=== PATIENT | female | born 1965 | race African-American/Black ===

== ENCOUNTER 2017-03-09 05:49 | Emergency (ER) | payer OTHER ==
[~2017-03-09] VITALS: Ht 160 cm; Wt 81.0 kg
[2017-03-09] MEDS ORDERED: ONDANSETRON HCL 4MG/2ML VIAL IV ONE (07:00)
[2017-03-09] MEDS ORDERED: MORPHINE SULFATE 4 MG/ML CPJ (NOT FOR IM USE) IV ONE (07:00)
[2017-03-09] MEDS ORDERED: PROPOFOL 200MG/20ML VIAL IV ONE ×2 (07:00→07:30)
[2017-03-09 11:41] VITALS: BP 132/87
== END 2017-03-09 11:43 | disposition home or self-care (01) ==
LOC: ER 05:50
DX: S43.085A Other dislocation of left shoulder joint, initial encounter (principal); Z98.51 Tubal ligation status; Z90.710 Acquired absence of both cervix and uterus; Z98.890 Other specified postprocedural states; W01.0XXA Fall on same level from slipping, tripping and stumbling without subsequent striking against object, initial encounter; Y93.89 Activity, other specified; Y99.8 Other external cause status; Y92.89 Other specified places as the place of occurrence of the external cause
CPT/HCPCS: 23650; 73030; 93005; 96374; 96375; 99152; 99285; J2270; J2405; J2704; L3670

== ENCOUNTER 2017-10-28 23:44 | Emergency (ER) | payer OTHER ==
[~2017-10-28] VITALS: Ht 160 cm; Wt 97.0 kg
[2017-10-29] MEDS ORDERED: KETOROLAC 30MG/ML VIAL IV STA (01:41)
[2017-10-29] MEDS ORDERED: KETOROLAC 60MG/2ML VIAL IM ONE (01:45)
[2017-10-29] MEDS ORDERED: ETOMIDATE 2MG/ML 10ML VIAL IV ONE (01:45)
[2017-10-29 03:44] VITALS: BP 157/99
== END 2017-10-29 03:58 | disposition home or self-care (01) ==
LOC: ER 23:44 → CANBEDREQ 10-29 03:28 → ER 10-29 03:58
DX: S43.005A Unspecified dislocation of left shoulder joint, initial encounter (principal); M19.90 Unspecified osteoarthritis, unspecified site; F17.200 Nicotine dependence, unspecified, uncomplicated; F12.10 Cannabis abuse, uncomplicated; Z91.040 Latex allergy status; X58.XXXA Exposure to other specified factors, initial encounter; Y93.89 Activity, other specified; Y92.89 Other specified places as the place of occurrence of the external cause; Y99.8 Other external cause status
CPT/HCPCS: 23650; 73030; 96374; 99152; 99285; J1885; J3490; Z7610; L3670

== ENCOUNTER 2019-08-29 10:30 | Emergency (ER) | payer MEDICAID, OTHER ==
[~2019-08-29] VITALS: Ht 160 cm; Wt 89.0 kg
[2019-08-29 11:23] VITALS: BP 143/98
[2019-08-29] MEDS ORDERED: KETOROLAC 60MG/2ML VIAL IM ONE (11:30)
== END 2019-08-29 11:28 | disposition home or self-care (01) ==
LOC: ER 10:30
DX: S83.8X1A Sprain of other specified parts of right knee, initial encounter (principal); M19.90 Unspecified osteoarthritis, unspecified site; F12.10 Cannabis abuse, uncomplicated; Z90.710 Acquired absence of both cervix and uterus; Z98.890 Other specified postprocedural states; Z91.040 Latex allergy status; X50.1XXA Overexertion from prolonged static or awkward postures, initial encounter; Y93.89 Activity, other specified; Y92.89 Other specified places as the place of occurrence of the external cause; Y99.8 Other external cause status
CPT/HCPCS: 96372; 99283; J1885; L1830

== ENCOUNTER 2020-07-07 16:45 | Emergency (ER) | payer OTHER ==
[~2020-07-07] VITALS: Ht 160 cm; Wt 92.0 kg
[2020-07-07 16:49] VITALS: BP 154/115
[2020-07-07] MEDS ORDERED: DEXAMETHASONE 4MG TABLET PO ONE (17:15)
== END 2020-07-07 17:38 | disposition home or self-care (01) ==
LOC: ER 16:45
DX: T78.40XA Allergy, unspecified, initial encounter (principal); Z90.710 Acquired absence of both cervix and uterus; Z98.51 Tubal ligation status; Z91.040 Latex allergy status; X58.XXXA Exposure to other specified factors, initial encounter
CPT/HCPCS: 99283; J8540